=== PATIENT | male | born 1970 | race Caucasian/White ===

== ENCOUNTER 2017-07-08 08:58 | Emergency (ER) | payer BC, OTHER ==
--- NOTE | 2017-07-08 10:52 | UC ---
Shoulder Pain HPI - HPI Summary HPI Summary: RIGHT SHOULDER PAIN AND DECREASED ROM AFTER FALLING DOWN STAIRS YESTERDAY. ADVIL HELPS. - History of Current Complaint Chief Complaint: UCUpperExtremity Stated Complaint: FALL RT ARM Time Seen by Provider: 07/08/17 10:45 Hx Obtained From: Patient Onset/Duration: Sudden Onset, Lasting Days, Still Present Timing: Constant Severity Initially: Moderate Severity Currently: Moderate Location Of Pain: Is Discrete @ - RIGHT SHOULDER Pain Intensity: 6 Pain Scale Used: 0-10 Numeric Character: Sharp, Aching Aggravating Factor(s): Movement Alleviating Factor(s): Rest Associated Signs And Symptoms: Positive: Negative Related History: Dominant Hand Right - Allergies/Home Medications Allergies/Adverse Reactions: Allergies Allergy/AdvReac Type Severity Reaction Status Date / Time Fluticasone [From Flonase] Allergy Intermediate Swelling Verified 07/08/17 09:50 Of Face,Lips,& Throat Vancomycin Allergy Intermediate redmans Verified 07/08/17 09:50 syndrom Home Medications: Home Medications metFORMIN* [Glucophage 1000 MG TAB *] 1,000 mg BID 07/08/17 [History Confirmed 07/08/17] PMH/Surg Hx/FS Hx/Imm Hx Endocrine History: Diabetes GI/ History: Diverticulitis - Surgical History Surgical History: Yes Surgery Procedure, Year, and Place: 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 - hx of infection there requiring removal (may be replaced) - Family History Known Family History: Negative: Hypertension - Social History Alcohol Use: Occasionally Substance Use Type: None Smoking Status (MU): Former Smoker Amount Used/How Often: Feb 2014 - Immunization History Most Recent Influenza Vaccination: 2017 Review of Systems Constitutional: Negative Skin: Negative Respiratory: Negative Cardiovascular: Negative Gastrointestinal: Negative Musculoskeletal: Arthralgia, Decreased ROM, Myalgia All Other Systems Reviewed And Are Negative: Yes Physical Exam Triage Information Reviewed: Yes Appearance: Well-Appearing, No Pain Distress, Well-Nourished Vital Signs: Initial Vital Signs Temp 98.2 F 07/08/17 09:50 Pulse 86 07/08/17 09:50 Resp 16 07/08/17 09:50 BP 136/93 07/08/17 09:50 Pulse Ox 100 07/08/17 09:50 Vital Signs Reviewed: Yes Eyes: Positive: Conjunctiva Clear ENT: Positive: Hearing grossly normal Neck: Positive: Supple Respiratory: Positive: No respiratory distress, No accessory muscle use Cardiovascular: Positive: Pulses Normal Abdomen Description: Positive: Soft Musculoskeletal: Positive: No Edema, ROM Limited @ - RIGHT SHOULDER, Other: - NOT TTP OVER ANY BONY PROMINENCES OF THE RIGHT SHOULDER. NO AC JOINT TENDERNESS. POSITIVE EMPTY CAN AND MCKENZIE. Neurological: Positive: Alert Psychological: Positive: Age Appropriate Behavior Skin: Negative: rashes Diagnostics - Radiology RIGHT SHOULDER XRAY Xray Interpretation: Positive (See Comments) - SOFT TISSUE CALCIFICATIONS SUGGESTIVE OF A CALCIFIC TENDINOPATHY. NO ACUTE OSSEOUS INJURY. Radiology Interpretation Completed By: Radiologist Shoulder Course/Dx - Differential Dx/Diagnosis Provider Diagnoses: RIGHT SHOULDER CALCIFIC TENDINOPATHY Discharge - Discharge Plan Condition: Stable Disposition: HOME Patient Education Materials: Calcific Tendinitis (ED) Referrals: Evelin Marlow PA [Primary Care Provider] - If Needed Dioni Bardales MD [Medical Doctor] - If Needed Additional Instructions: SHOULDER XRAY TODAY SUGGESTIVE OF CALCIFIC TENDINOPATHY. ALSO CONSIDER ROTATOR CUFF INJURY. CONSULT YOUR PHYSICAL THERAPIST FOR TREATMENT. FOLLOW-UP WITH ORTHO. CALCIFIC TENDINITIS/TENDINOSIS YOUR XRAY SHOWS A CALCIUM DEPOSIT IN THE SOFT TISSUES OF YOUR SHOULDER. THIS COULD BE CONTRIBUTING TO YOUR SYMPTOMS. SUCCESSFUL MANAGEMENT OFTEN CONSISTS OF MEDICATION, A SLING AND PHYSICAL THERAPY. OCCASIONALLY INJECTIONS MAY BE INDICATED. IN RARE CASES SURGERY MAY BE CONSIDERED. The onset of symptoms is usually spontaneous and is associated with the rapid development of excruciating shoulder pain and inability to sleep. The patient is exceedingly tender to palpation and has extreme pain with any attempted motion of the shoulder. There may be warmth and fullness. Elbow and hand motion are normal and circulation/neurologic examination is intact. FOLLOW-UP WITH ORTHO FOR FURTHER EVALUATION AND MANAGEMENT. SLING NEEDED FOR COMFORT. YOUR BLOOD PRESSURE WAS SLIGHTLY ELEVATED TODAY (136/93). THIS MAY BE DUE TO YOUR ACUTE CONDITION. MONITOR AND FOLLOW-UP WITH YOUR PCP WITHIN 4 WEEKS IF IT HAS NOT RETURNED TO NORMAL.
--- NOTE | 2017-07-08 11:12 | RAD ---
HISTORY: Fall, right shoulder pain COMPARISONS: None VIEWS: 4, Frontal internal rotation, external rotation, outlet, and axillary views of the right shoulder FINDINGS: BONE DENSITY: Normal. BONES: There is no displaced fracture. JOINTS: There is no arthropathy. ALIGNMENT: There is no dislocation. SOFT TISSUES: There is minimal soft tissue calcification along the proximal right humerus best seen on the axillary views. OTHER FINDINGS: None. IMPRESSION: SOFT TISSUE CALCIFICATIONS SUGGESTIVE OF A CALCIFIC TENDINOPATHY. NO ACUTE OSSEOUS INJURY. IF SYMPTOMS PERSIST, RECOMMEND REPEAT IMAGING.
[2017-07-08 11:43] VITALS: BP 140/84
== END 2017-07-08 11:49 | disposition home or self-care (01) ==
LOC: UCCORT 08:58
DX: M75.21 Bicipital tendinitis, right shoulder (principal); E11.9 Type 2 diabetes mellitus without complications; Z79.84 Long term (current) use of oral hypoglycemic drugs; Z72.89 Other problems related to lifestyle; Z87.891 Personal history of nicotine dependence; W10.9XXA Fall (on) (from) unspecified stairs and steps, initial encounter; Y93.9 Activity, unspecified; Y92.9 Unspecified place or not applicable
CPT/HCPCS: 99213; G0463

== ENCOUNTER 2017-10-24 19:04 | Emergency (ER) | payer BC ==
[2017-10-24 19:18] VITALS: BP 123/91
--- NOTE | 2017-10-24 20:39 | UC ---
Shoulder Pain HPI - HPI Summary HPI Summary: 47 yo male injured right shoulder months ago (Jun) never followed up with orthopedist decreased ROM right shoulder pain mid humerus unable to sleep on right side - History of Current Complaint Chief Complaint: UCUpperExtremity Stated Complaint: ARM INJURY Time Seen by Provider: 10/24/17 20:26 Hx Obtained From: Patient Onset/Duration: Sudden Onset, Lasting Weeks Timing: Constant Severity Initially: Moderate Severity Currently: Moderate Pain Intensity: 6 Pain Scale Used: 0-10 Numeric Character: Dull, Aching Aggravating Factor(s): Movement Alleviating Factor(s): Rest Associated Signs And Symptoms: Positive: Negative Related History: Dominant Hand Right - Allergies/Home Medications Allergies/Adverse Reactions: Allergies Allergy/AdvReac Type Severity Reaction Status Date / Time fluticasone [From Flonase] Allergy Hives Verified 10/24/17 19:19 vancomycin Allergy Swelling Verified 10/24/17 19:19 Of Face,Lips,& Throat PMH/Surg Hx/FS Hx/Imm Hx Previously Healthy: Yes - Surgical History Surgical History: Yes Surgery Procedure, Year, and Place: 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 - hx of infection there requiring removal (may be replaced) - Family History Known Family History: Negative: Hypertension - Social History Alcohol Use: Occasionally Substance Use Type: None Smoking Status (MU): Former Smoker Amount Used/How Often: Feb 2014 - Immunization History Most Recent Influenza Vaccination: 2016 Review of Systems Constitutional: Negative Skin: Negative Eyes: Negative ENT: Negative Respiratory: Negative Cardiovascular: Negative Gastrointestinal: Negative Genitourinary: Negative Motor: Negative Neurovascular: Negative Musculoskeletal: Arthralgia, Myalgia Neurological: Negative Psychological: Negative Is Patient Immunocompromised?: No All Other Systems Reviewed And Are Negative: Yes Physical Exam Triage Information Reviewed: Yes Appearance: Well-Appearing, No Pain Distress, Well-Nourished Vital Signs: Initial Vital Signs Temp 98.6 F 10/24/17 19:15 Pulse 108 10/24/17 19:15 Resp 18 10/24/17 19:15 BP 123/91 10/24/17 19:15 Pulse Ox 98 10/24/17 19:15 Vital Signs Reviewed: Yes Eyes: Positive: Conjunctiva Clear ENT: Positive: Hearing grossly normal. Negative: Nasal congestion, Nasal drainage, Trismus, Muffled voice, Sinus tenderness, Uvula midline Neck: Positive: Supple, Nontender, No Lymphadenopathy Respiratory: Positive: Lungs clear, Normal breath sounds, No respiratory distress Cardiovascular: Positive: RRR, No Murmur Musculoskeletal: Positive: ROM Limited @ - right shoulder-unable to abduct greater 90degrees, limited external rotation Neurological: Positive: Alert Psychological Exam: Normal Skin Exam: Normal Diagnostics - Radiology No standard instances Xray Interpretation: No Acute Changes Radiology Interpretation Completed By: Radiologist Shoulder Course/Dx - Differential Dx/Diagnosis Provider Diagnoses: right shoulder injury. ? partial rotator cuff tear vs torn labrum vs other Discharge - Sign-Out/Discharge Documenting (check all that apply): Discharge/Admit/Transfer - Discharge Plan Condition: Stable Disposition: HOME Patient Education Materials: Shoulder Pain (ED) Referrals: Bernabe Hunter MD [Medical Doctor] - As Soon As Possible - Billing Disposition and Condition Condition: STABLE Disposition: HOME
--- NOTE | 2017-10-24 20:56 | RAD ---
Indication: Right shoulder pain one month after an injury Comparison: Right shoulder radiograph July 08, 2017 Technique: Two views of the right humerus were obtained. Report: The visualized bones of the right upper arm are well-corticated and properly aligned. There is no acute fracture or dislocation seen. There is no focal bony abnormality. IMPRESSION: Normal radiograph of the right upper extremity. If the patient's symptoms persist, follow-up imaging is recommended
== END 2017-10-24 21:12 | disposition home or self-care (01) ==
LOC: UCEAST 19:04
DX: S49.91XA Unspecified injury of right shoulder and upper arm, initial encounter (principal); X58.XXXA Exposure to other specified factors, initial encounter; Y93.9 Activity, unspecified; Y92.9 Unspecified place or not applicable; Z88.1 Allergy status to other antibiotic agents; Z87.891 Personal history of nicotine dependence
CPT/HCPCS: 99211; G0463

== ENCOUNTER 2019-06-25 11:11 | Emergency (ER) | payer BC, OTHER ==
[2019-06-25 12:12] VITALS: BP 124/78
--- NOTE | 2019-06-25 12:41 | UC ---
Lower Extremity/Ankle HPI - HPI Summary HPI Summary: 49 yo with awareness of foot pain and nodule on the underside of the left foot x 4 days. this has been aching more at work, where he is on his feet a lot of the time. - History of Current Complaint Chief Complaint: UCLowerExtremity Stated Complaint: L FOOT COMP Time Seen by Provider: 06/25/19 12:23 Hx Obtained From: Patient Onset/Duration: Gradual Onset, Lasting Days Severity Initially: Mild Severity Currently: Moderate Pain Intensity: 7 Aggravating Factor(s): Standing, Ambulation Alleviating Factor(s): Rest, OTC Meds Able to Bear Weight: Yes - Risk Factors Gout Risk Factors: Age Over 40 DVT Risk Factors: Negative Septic Arthritis Risk Factor: Negative - Allergies/Home Medications Allergies/Adverse Reactions: Allergies Allergy/AdvReac Type Severity Reaction Status Date / Time fluticasone [From Flonase] Allergy Hives Verified 06/25/19 12:10 vancomycin Allergy Swelling Verified 06/25/19 12:10 Of Face,Lips,& Throat PMH/Surg Hx/FS Hx/Imm Hx Previously Healthy: Yes - Surgical History Surgical History: Yes Surgery Procedure, Year, and Place: 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 - hx of infection there requiring removal (may be replaced). [place] - Family History Known Family History: Negative: Hypertension - Social History Occupation: Employed Full-time Lives: With Family Alcohol Use: Occasionally Substance Use Type: None Smoking Status (MU): Heavy Every Day Tobacco Smoker Type: Cigarettes Amount Used/How Often: 1/2 PPD - Immunization History Most Recent Influenza Vaccination: 2017 Review of Systems All Other Systems Reviewed And Are Negative: Yes Constitutional: Positive: Negative Skin: Positive: Negative Eyes: Positive: Negative ENT: Positive: Negative Respiratory: Positive: Negative Cardiovascular: Positive: Negative Gastrointestinal: Positive: Negative Genitourinary: Positive: Negative Motor: Positive: Negative Neurovascular: Positive: Negative Musculoskeletal: Positive: Other: - foot pain and nodule Neurological: Positive: Negative Psychological: Positive: Negative Is Patient Immunocompromised?: No Physical Exam Triage Information Reviewed: Yes Appearance: Well-Appearing, No Pain Distress Vital Signs: Initial Vital Signs Temp 98.3 F 06/25/19 12:06 Pulse 96 06/25/19 12:06 Resp 17 06/25/19 12:06 BP 124/78 06/25/19 12:06 Pulse Ox 100 06/25/19 12:06 Eye Exam: Normal Respiratory: Positive: Lungs clear, Normal breath sounds Cardiovascular: Positive: RRR, No Murmur Musculoskeletal Exam: Other - 1.5 x 1 cm mobile and compressible nodule associated with the flexor tendon of the left second toe. No erythema. Musculoskeletal: Positive: Strength Intact, ROM Intact Neurological: Positive: Alert, Muscle Tone Normal Psychological Exam: Normal Skin Exam: Normal Lower Extremity Course/Dx - Course Course Of Treatment: Discussed most likely a ganglion cyst, will refer to orthopedics for evaluation. - Differential Dx/Diagnosis Differential Diagnosis/HQI/PQRI: Cellulitis, Gout, Other - ganglion cyst left foot Provider Diagnosis: Ganglion cyst of left foot Discharge ED - Sign-Out/Discharge Documenting (check all that apply): Patient Departure All imaging exams completed and their final reports reviewed: No Studies - Discharge Plan Condition: Stable Disposition: HOME Patient Education Materials: Ganglion Cysts (ED) Referrals: No Primary Care Phys,NOPCP [Primary Care Provider] - Kendrick Garrido MD [Medical Doctor] - Additional Instructions: Please schedule a visit with orthopedics for evaluation of the likely ganglion cyst of the left foot. Adapt footwear as best you can to decrease friction of the sole against your shoes. - Billing Disposition and Condition Condition: STABLE Disposition: Home
== END 2019-06-25 12:58 | disposition home or self-care (01) ==
LOC: UCCORT 11:11
DX: M67.472 Ganglion, left ankle and foot (principal); F17.210 Nicotine dependence, cigarettes, uncomplicated; Z88.8 Allergy status to other drugs, medicaments and biological substances; Z88.1 Allergy status to other antibiotic agents
CPT/HCPCS: 99211; G0463